=== PATIENT | female | born 1955 | race Caucasian/White ===

== ENCOUNTER 2022-11-26 10:35 | Emergency (ER) | payer MEDICARE, OTHER, SELFPAY ==
[2022-11-26 10:48] VITALS: BP 150/75; PULSE 74; RESP 18; TEMP 36.5; O2SAT 100
--- NOTE | 2022-11-26 10:55 | ED.WOUNDLAC ---
HPI - Wound/Laceration General Chief Complaint: Wound/Laceration Stated Complaint: Insect Bite Lt Forearm Time Seen by Provider: 11/26/22 10:52 Source: patient, RN notes reviewed and old records reviewed Mode of arrival: ambulatory Limitations: no limitations History of Present Illness HPI narrative: 67 year old female who presents to [facility] care with complaints of insect bites to her left forearm which happened on Wednesday when she was pulling weeds. Patient reports in the past 3 days he has developed swelling and redness to her left forearm, 2 small bite giordano noted with surrounding swelling and redness and pain noted on her left forearm. Area of swelling and redness noted measuring 8 cmX13 cm on inner aspect of her left arm. Patient reports that she has been cleansing her left arm with soap and water and applying eosporin ointment Onset (ago): day(s) (4) Location: other (left forearm) Treatments prior to arrival: bandage and other (cleansing and Neosporin) Related Data Home Medications Medication Instructions Recorded Confirmed aspirin 81 mg capsule 81 mg PO DAILY 11/26/22 11/26/22 clonazepam 1 mg tablet 0.5 mg PO PRN PRN Anxiety 11/26/22 11/26/22 fenofibrate nanocrystallized 48 mg 96 mg PO DAILY 11/26/22 11/26/22 tablet losartan 50 mg tablet 50 mg PO DAILY 11/26/22 11/26/22 omeprazole 40 mg capsule,delayed 40 mg PO DAILY 11/26/22 11/26/22 release rosuvastatin 5 mg tablet 5 mg PO DAILY 11/26/22 11/26/22 solifenacin 10 mg tablet 10 mg PO DAILY 11/26/22 11/26/22 Allergies Allergy/AdvReac Type Severity Reaction Status Date / Time codeine Allergy Mild Unknown Verified 11/26/22 11:00 Penicillins Allergy Mild Unknown Verified 11/26/22 11:00 Opioids - Morphine Analogues AdvReac Unknown UNKNOWN Verified 11/26/22 11:00 tramadol AdvReac Unknown UNKNOWN Verified 11/26/22 11:00 Review of Systems Review of Systems: CONSTITUTIONAL: Denies fever, chills, or sweats. CARDIOVASCULAR: Denies chest pain, palpitations, or edema. RESPIRATORY: Denies cough or dyspnea. GASTROINTESTINAL: Denies abdominal pain, nausea, vomiting SKIN: Reports redness and swelling around 2 small bites on inner aspect of left forearm with discomfort. Denies purulent drainage. MUSCULOSKELETAL: Denies myalgia. NEUROLOGIC: Denies headache, numbness All systems reviewed & are unremarkable except as noted in HPI and below PMFSH Past Medical History Medical History (Updated 11/26/22 @ 15:53 by Joan Sanchez NP) Elevated cholesterol GERD (gastroesophageal reflux disease) Hypertension Seasonal allergies Surgical History Surgical History (Updated 11/26/22 @ 15:53 by Joan Sanchez NP) H/O breast biopsy H/O laparoscopy History of foot surgery Social History Social History (Updated 11/26/22 @ 15:51 by Jona Sanchez NP) Smoking status: Never smoker Alcohol intake: current Alcohol use details: rare social Substance use type: does not use Occupation/Education: retired Gender identity (if verbalized by the patient): Female Comments At time of signature, agree with nursing past medical, surgical, social and family history. There is no relevant family history pertinent to the presenting complaint Exam Narrative: GENERAL: Well-appearing, well-nourished, and in no acute distress. HEAD: Normocephalic, atraumatic. EYES: PERRLA and EOMI. ENT: Nares clear, no rhinorrhea or epistaxis. Mucous membranes moist. NECK: Supple. no lymphadenopathy CHEST: Clear to auscultation. No respiratory distress. HEART: Regular rate and rhythm. No murmur heard. Normal peripheral pulses.SAO2 100% on room air ABDOMEN: Soft, nontender, nondistended, normal active bowel sounds. EXTREMITIES: Normal range of motion. No edema. SKIN: Warm, dry. Erythema, induration, tenderness, warmth with two small bite giordano with surrounding redness and swelling 8cm X 13Cm. no No vesicles,or any drainage nted. NEURO: No focal deficits. Alert and oriented x3. Cou
== END 2022-11-26 11:15 | disposition home or self-care (01) ==
PROVIDERS: Emergency Provider Registered Nurse; PCP Nurse Practitioner
DX: L03.114 Cellulitis of left upper limb (principal); S50.862A Insect bite (nonvenomous) of left forearm, initial encounter; W57.XXXA Bitten or stung by nonvenomous insect and other nonvenomous arthropods, initial encounter; E78.00 Pure hypercholesterolemia, unspecified; K21.9 Gastro-esophageal reflux disease without esophagitis; I10 Essential (primary) hypertension
CPT/HCPCS: 99213; G0463